=== PATIENT | female | born 1980 | race Caucasian/White ===

== ENCOUNTER → 2018-06-08 | Day surgery (SDC) | payer OTHER ==
--- NOTE | 2018-06-07 11:39 | History & Physical Pre-Op ---
General Information and HPI MD Statement: I have seen and personally examined SANJU AMARAL and documented this H& P. The patient is a 38 year old F who presented with a patient stated chief complaint of []. History of Present Illness: Patient presents for evaluation of a recurrent incisional hernia. It has been present for a number of years increasingly painful. Also growing in size. She has a complex past surgical history notable for 3 sections. Previously she was morbidly obese but is now status post laparoscopic gastric bypass and has lost 130 pounds. After her weight loss she noted the hernia. Subsequent to her weight loss she had skin removal surgery and concurrent primary repair of incisional hernia. The hernia has since recurred. CT scan was performed at [facility] last year and is unavailable for my review. She will bring the CD ROM to our office. Patient denies nausea vomiting. There is occasional constipation related to her hernia. No bladder issues. Allergies/Medications Allergies: Uncoded Allergies: SEASONAL ALLERGIES (Severe, 06/06/11) Home Med list Methadone Hydrochloride (Methadone HCl) 10 MG TABLET 1 TAB PO DAILY asd ( Reported) Sertraline HCl (Zoloft) 25 MG TABLET 1 TAB PO DAILY asd (Reported) Past History Medical History Psychiatric: anxiety, opioid dependence Blood Disorders: anemia Surgical History Pertinent Surgical History: cholecystectomy, , hernia repair-incisional , laparoscopic gastric bypass, abdominoplasty Past Family/Social History Psychosocial History Smoking Status: Current Everyday Smoker ETOH Use: occasional use Illicit Drug Use: denies illicit drug use Review of Systems Review of Systems: Patient reports constipation but reports no abdominal pain, no vomiting, no vomiting blood, normal appetite, no diarrhea, no constipation, no rectal bleeding, and no history of GERD. She reports no fatigue, no fever, no night sweats, no significant weight gain, no significant weight loss, and no exercise intolerance. She reports no abnormal moles, no jaundice, no hives, no eczema, and no rashes. She reports no dry eyes, no irritation, no vision change, and no discharge. She reports no hearing loss, no ear pain, no sneezing, no frequent nosebleeds, no nose/sinus problems, no bleeding gums, no snoring, no dry mouth, no mouth ulcers, no oral abnormalities, no teeth problems, no headaches, and no sore throat. She reports no cough, no wheezing, no shortness of breath, and no coughing up blood. She reports no chest pain, no arm pain on exertion, no shortness of breath when walking, no shortness of breath when lying down, no palpitations, and no leg swelling. She reports no incontinence, no difficulty urinating, no hematuria, and no increased frequency. She reports no muscle aches , no muscle weakness, no arthralgias/joint pain, and no back pain. She reports no gynecologic complaints. Exam & Diagnostic Data Physical Exam: Patient is a 38-year-old female. Constitutional: General Appearance: healthy-appearing, well-nourished, and well- developed. Level of Distress: no acute distress. Ambulation: ambulating normally. Head: Head: normocephalic and atraumatic. Cardiovascular: Heart Auscultation: normal S1 and S2, no rubs or gallops, and regular rate and rhythm and systolic ejection murmur. Lungs: Respiratory effort: no dyspnea. Percussion: no dullness, flatness, or hyperresonance. Auscultation: no wheezing, rales/crackles, or rhonchi and breath sounds normal, good air movement, and clear to auscultation. Back: Thoracolumbar Appearance: normal curvature. Abdomen: Inspection and Palpation: no tenderness, guarding, masses, rebound tenderness, or CVA tenderness and soft and non-distended. Bowel Sounds: normal. Liver: non-tender and no hepatomegaly. Spleen: non-tender and no splenomegaly. Hernia: incisional (Incompletely reducible incisional hernia near the Pfannenstiel portion of her abdominoplasty. Contents are difficult to assess but the bulge is large enough that bowel could be present.). Skin: Inspection and palpation: no rash, lesions, ulcer, induration, nodules, jaundice, or abnormal nevi and good turgor. Musculoskeletal:: Extremities: no cyanosis, edema, varicosities, or palpable cord. Motor Strength and Tone: normal tone and motor strength. Joints, Bones, and Muscles: no contractures, malalignment, tenderness, or bony abnormalities and normal movement of all extremities. Assessment/Plan Assessment/Plan: Recurrent ventral incisional hernia with obstruction - Recommend robotic assisted laparoscopic repair of her recurrent incarcerated hernia. Primary closure with extraperitoneal mesh will be performed. K43.0: Incisional hernia with obstruction, without gangrene Discussion Notes Discussed the pathophysiology of hernias and the need for mesh repair. He understands the permanent nature of mesh. Discussed the risks of surgery including recurrence of the hernia, bleeding and infection. He understands that if mesh infection occurs, removal will necessary. He understands the need for general anesthesia. As Ranked By This Provider Problem List: 1. Recurrent incisional hernia with obstruction
[~2018-06-08] MED LIST: METHADONE HCL10 M1 PO; PERCOCET 5-3251 EACH PO; ZOLOFT25 M1 PO
--- NOTE | 2018-06-08 16:59 | Operative Report ---
Operative/Inv Procedure Report Surgery Date: 06/08/18 Name of Procedure: Robotic-assisted laparoscopic recurrent incisional hernia repair with mesh Pre-Operative Diagnosis: Recurrent incisional hernia Post-Operative Diagnosis: Same Estimated Blood Loss: scant Surgeon/Notching Machine Operator: Win CHURCHILL,Willie Matson/ LEIN Becker Anesthesia: general endotracheal tube Implants: [employer] director of home economics 9 x 15 cm Operative/Procedure Note Note: After consent she is brought to the operating room laid supine. Gen. anesthesia was obtained and her abdomen was prepped and draped. Pneumoperitoneum was achieved with an optical 8 mm trocar in the left upper quadrant. 2 more 8 mm ports were placed the epigastric region and right upper quadrant after local anesthesia was instilled under direct vision the camera. The robot was docked and targeted. His. By preoperative imaging to review 3 separate fascial defects all below the umbilical midline. Created a preperitoneal flap with cautery dissected down to periumbilical defect. Defect was quite small contents were delivered flap dissection carried forth. Second defect was identified, measuring 2 cm in dimension. It was delivered reflected inferiorly. Finally there was a larger defect near the pubic region was composed of omentum. There is large amount of it and it was delivered with some difficulty. Within finished completing the dissection by dissecting the preperitoneal space widely around all the defects. Defects were closed primarily with a running 0 nonabsorbable V lock suture. The fascia in between the defects was imbricated. Within measured the defect and chose a 9 x 15 cm mesh to cover all of them. Programmed was rolled up and placed in the flap. It was unraveled to cover all the defects with a 3 cm overlap. After it was placed, the flap was then closed with a running 2-0 absorbable v lock suture. There was a tear in the flap which was repaired with more sutures. At the conclusion of the operation the mesh was completely covered by peritoneal tissue. The ports were delivered and skin closed 4-0 Vicryl. Sterile dressings applied sponge and needle counts are correct CC: Myles CHURCHILL,Jj Aguyao; Gen CHURCHILL,[facility]
== END ==
LOC: STS 02:54
DX: K43.2 Incisional hernia without obstruction or gangrene (principal); F17.200 Nicotine dependence, unspecified, uncomplicated
CPT/HCPCS: 49656; 64488; S2900; 81025; C1781; J0690; J1100; J1885; J2250; J2405; J3490